=== PATIENT | male | born 1980 | race Two or more races ===

== ENCOUNTER 2025-06-30 13:50 | Emergency (ER) | payer OTHER ==
[~2025-06-30] VITALS: Ht 172.7 cm; Wt 90.7 kg
[2025-06-30 13:52] VITALS: BP 139/78
[2025-06-30] MEDS ORDERED: TETRACAINE HCL 0.5% OPHT DROP 2 ML BOTTLE ONE (14:05)
[2025-06-30] MEDS: PROPARACAINE 0.5% OPHT DROP 15 ML BOTTLE OP ONE (14:10)
[2025-06-30] MEDS ORDERED: CIPROFLOXACIN 0.3% OPHT OINT 3.5 GM TUBE LEFTEYE ONE (14:45)
[2025-06-30] MEDS ORDERED: CIPROFLOXACIN 0.3% OPHT OINT 3.5 GM TUBE RIGHTEYE ONE (14:45)
[2025-06-30] MEDS ORDERED: FLUORESCEIN SODIUM 1 MG STRIP ONE (14:54)
[2025-06-30] MEDS: FLUORESCEIN SODIUM 1 MG STRIP OP ONE (15:00)
[2025-06-30] MEDS ORDERED: ERYTHROMYCIN 0.5% OPHT OINT 3.5 GM TUBE ONE (15:01)
[2025-06-30] MEDS: ERYTHROMYCIN 0.5% OPHT OINT 3.5 GM TUBE OP ONE (15:14)
[2025-06-30 15:21] VITALS: BP 139/78; TEMP 97.7; O2SAT 98
== END 2025-06-30 15:21 | disposition home or self-care (01) ==
LOC: ER 13:50
DX: Z77.098 Contact with and (suspected) exposure to other hazardous, chiefly nonmedicinal, chemicals (principal)
CPT/HCPCS: 99284; J7040 ×2; A4606; A4663